=== PATIENT | female | born 1940 | race American Indian/Alaskan Native ===

== ENCOUNTER 2016-08-02 01:37 | Emergency (ER) | payer MEDICARE ==
--- NOTE | 2016-08-02 01:42 | C.PDOC ---
History Of Present Illness Patient was brought to the ED by EMS after being found unresponsive by her son. Patient is an insulin dependent diabetic. Upon arrival of EMS patient's sugar level was between 20-30 and was given 1 amp of d50 and returned to baseline. Patient denies any chest pain, shortness of breath, palpitation. Time Seen by Provider: 08/02/16 01:41 History Per: Patient History/Exam Limitations: no limitations Onset/Duration Of Symptoms: Hrs Current Symptoms Are (Timing): Better Current Diabetic Medications: Insulin Associated Infectious Symptoms: denies: Cough, Nausea, Vomiting, Diarrhea Treatment Prior To Provider Evaluation: D50W Given (1 amp of d50 ) Response To Treatment: Good Response Recent travel outside of the [place]: No Additional History Per: EMS, Family (son ) Past Medical History Reviewed: Historical Data, Nursing Documentation, Vital Signs Vital Signs: Last Vital Signs Temp 97.5 F L 08/02/16 01:43 Pulse 59 L 08/02/16 01:43 Resp 20 08/02/16 01:43 BP 154/67 H 08/02/16 01:43 Pulse Ox 98 08/02/16 02:24 Family History: States: No Known Family Hx Review Of Systems Constitutional: Negative for: Fever, Chills, Sweats Cardiovascular: Negative for: Chest Pain, Palpitations Respiratory: Negative for: Cough, Shortness of Breath Gastrointestinal: Negative for: Nausea, Vomiting, Abdominal Pain, Diarrhea Physical Exam - Physical Exam Appears: Non-toxic, No Acute Distress, Other (Patient is obese) Skin: Warm, Dry Head: Atraumatic Eye(s): bilateral: Normal Inspection Oral Mucosa: Moist Teeth: Edentulous Neck: Supple Chest: Symmetrical, No Deformity Cardiovascular: Rhythm Regular Respiratory: No Rales, No Rhonchi, No Stridor, No Wheezing Gastrointestinal/Abdominal: Soft, No Tenderness, Distention, No Guarding, No Rebound Extremity: Normal ROM, No Tenderness Neurological/Psych: Oriented x3 ED Course And Treatment - Laboratory Results Result Diagrams: 08/02/16 02:09 08/02/16 02:09 ECG: Interpreted By Me, Viewed By Me ECG Rhythm: Sinus Rhythm (63), Nonspecific Changes O2 Sat by Pulse Oximetry: 98 Pulse Ox Interpretation: Normal Reevaluation Time: 03:23 Reassessment Condition: Improved Disposition Counseled Patient/Family Regarding: Studies Performed, Diagnosis, Need For Followup - Disposition Referrals: Berna Mariee MD [Staff Provider] - Disposition: HOME/ ROUTINE Disposition Time: 01:42 Condition: FAIR Instructions: Diabetic Hypoglycemia (GEN) - Clinical Impression Clinical Impression: Hypoglycemia - Scribe Statement The provider has reviewed the documentation as recorded by the Scribe Caryl Curiel All medical record entries made by the Scribe were at my direction and personally dictated by me. I have reviewed the chart and agree that the record accurately reflects my personal performance of the history, physical exam, medical decision making, and the department course for this patient. I have also personally directed, reviewed, and agree with the discharge instructions and disposition.
[2016-08-02 02:14] LABS: MEAN PLATELET VOLUME 10.5 fL (7.2-11.7); WHITE BLOOD COUNT 6.8 K/uL (4.8-10.8)
[2016-08-02 02:18] LABS: BASO # 0.1 K/uL (0.0-0.2); EOS # 0.2 K/uL (0.0-0.7); EOS % 2.2 % (0.0-4.0); HEMATOCRIT 44.3 % (34.0-47.0); LYMPH # 1.7 K/uL (1.0-4.3); LYMPH % 24.4 % (20.0-40.0); MEAN CELL VOLUME 90.8 fL (81.0-99.0); MEAN CORPUSCULAR HEMOGLOBIN 29.7 pg (27.0-31.0); MEAN CORPUSCULAR HGB CONC 32.8 g/dL (33.0-37.0); MONO # 0.8 K/uL (0.0-0.8); MONO % 11.4 % (0.0-10.0); RED CELL DISTRIBUTION WIDTH 13.9 % (11.5-14.5)
[2016-08-02 02:22] LABS: CHLORIDE 110 mmol/L (98-107); POTASSIUM 3.9 mmol/L (3.6-5.2); SODIUM 144 mmol/L (132-148)
[2016-08-02 02:23] LABS: URINE BILIRUBIN NEGATIVE (NEGATIVE); URINE BLOOD 1+ (NEGATIVE); URINE COLOR Yellow (YELLOW); URINE GLUCOSE (UA) NORMAL (Normal); URINE KETONE NEGATIVE (NEGATIVE); URINE LEUKOCYTE ESTERASE NEG Leu/uL (Negative); URINE PROTEIN 2+ mg/dL (NEGATIVE); WBC URINE 1 /hpf (0-5)
[2016-08-02 02:24] LABS: BILIRUBIN,TOTAL 0.8 mg/dL (0.2-1.3); GFR AFRICAN-AMERICAN > 60
[2016-08-02 02:24] LABS: RBC URINE 5 /hpf (0-3)
[2016-08-02 02:25] LABS: ALB/GLOB RATIO 0.9 (1.0-2.1); ALKALINE PHOSPHATASE 94 U/L (38-126); ALT/SGPT 30 U/L (9-52); AST/SGOT 57 U/L (14-36); BLOOD UREA NITROGEN 15 mg/dL (7-17); CARBON DIOXIDE 24 mmol/L (22-30); GLUCOSE,RANDOM 111 mg/dL (65-105); TOTAL PROTEIN 7.4 g/dL (6.3-8.3)
[2016-08-02 02:26] LABS: CALCIUM 9.2 mg/dl (8.6-10.4)
[2016-08-02] MEDS ORDERED: Dextrose 50% SYRINGE Inj (50 ml) IV STA ×2 (03:23→03:26)
[2016-08-02] MEDS ORDERED: Dextrose 50% SYRINGE Inj (50 ml) ONE (03:28)
[2016-08-02 04:13] VITALS: BP 153/97; PULSE 73; RESP 22; TEMP 97.7; O2SAT 96
== END 2016-08-02 04:20 | disposition home or self-care (01) ==
LOC: C.ER 01:37
DX: E11.649 Type 2 diabetes mellitus with hypoglycemia without coma (principal); Z79.4 Long term (current) use of insulin